=== PATIENT | female | born 1945 | race Caucasian/White ===

== ENCOUNTER 2021-09-05 18:16 | Emergency (ER) | payer BC ==
[~2021-09-05 18:16] MED LIST: NORCO 5-325 TA1 EACH PO
[2021-09-05 19:43] LABS: HEMOGLOBIN 14.3 gm/dl (12.3-15.3); RED BLOOD COUNT 5.05 M/UL (4.00-5.10); WHITE BLOOD COUNT 12.9 K/UL (4.5-11.0)
[2021-09-05] MEDS ORDERED: MEDROL4 MG PO (21:25)
== END 2021-09-05 21:40 | disposition home or self-care (01) ==
LOC: ER1 18:16
PROVIDERS: Preventive Medicine Occupational Medicine
DX: J44.9 Chronic obstructive pulmonary disease, unspecified (principal); I50.9 Heart failure, unspecified; I25.10 Atherosclerotic heart disease of native coronary artery without angina pectoris; Z20.822 Contact with and (suspected) exposure to COVID-19
CPT/HCPCS: 36600; 71045; 80053; 81001; 82550; 82553; 82803; 83690; 83880; 84484; 85025; 85652; 86140; 87086; 93005; 94664; 96374; 99285